=== PATIENT | male | born 1965 ===

== ENCOUNTER 2020-04-25 07:52 | Outpatient (CLI) | payer BC, SELFPAY ==
--- NOTE | 2020-04-25 08:09 | US_ITS ---
WS: [id number] SCROTAL ULTRASOUND EXAMINATION CLINICAL INFORMATION: LEFT TESTICULAR MASS COMPARISON: None. FINDINGS: Echogenic solid appearing nodule measuring 8 x 9 x 13 mm superficially in the superior late ral scrotal sac. This corresponds to the palpable abnormality and is nonspecific but may represent in spissated cyst, scrotal granuloma, fibrous pseudotumor, or hamartoma TESTES Normal in size and echotexture, without focal lesion. Color Doppler: Normal color Doppler flow pattern. Right testes size: 4.6 cm x 3.5 cm x 2.8 cm. Left testes size: 4.8 cm x 3.3 cm x 2.4 cm. EPIDIDYMIDES Normal in size and echotexture, without focal lesion. Color Doppler: Normal color Doppler flow pattern. Right epididymis size: 1.2 cm x 0.9 cm x cm. Left epididymitis size: cm x 1.0 cm x 1.2 cm. HYDROCELE Small bilateral VARICOCELE Small right varicocele OTHER FINDINGS None. US/US scrotum [id number] IMPRESSION: 1. Echogenic solid appearing nodule measuring 8 x 9 x 13 mm superficially in t he superior lateral scrotal sac. This corresponds to the palpable abnormality a nd is nonspecific but may represent inspissated cyst, scrotal granuloma, fibrou s pseudotumor, or hamartoma. Consider urology consultation for resection consid ering increase in size. 2. Small bilateral hydroceles. 3. Small right varicocele.
== END 2020-04-25 07:53 | disposition home or self-care (01) ==
PROVIDERS: PCP Nurse Practitioner Family; Visit Provider Nurse Practitioner Family
DX: N50.9 Disorder of male genital organs, unspecified (principal); I86.1 Scrotal varices; N43.3 Hydrocele, unspecified
CPT/HCPCS: 76870

== ENCOUNTER → 2020-05-23 17:00 | Outpatient (BNVA) | payer BC, SELFPAY | PROVIDERS: PCP Nurse Practitioner Family; Referring Provider Nurse Practitioner Family; Visit Provider Urology | DX: N50.89 Other specified disorders of the male genital organs (principal) | CPT/HCPCS: 81003; 88304 ==

== ENCOUNTER 2024-09-01 13:49 | Outpatient (CLI) | payer OTHER, SELFPAY ==
--- NOTE | 2024-09-01 14:32 | XR_ITS ---
WS: [id number] XR foot LT min 3V* [id number] REASON FOR EXAM: GREAT TOE PAIN BRUISING FINDINGS: No fracture or focal bone lesion. No periosteal reaction or bone erosion. Sesamoids intact. Joint spaces of the forefoot are intact and relatively well preserved. The joint spaces in the midfoot are intact and relatively well preserved. The subtalar joint is intact and relatively well preserved. Small anterior calcaneal enthesophyte. XR/XR foot LT min 3V* [id number] IMPRESSION: No acute bone or joint abnormality of the great toe. Remainder of the examinati on demonstrates no acute abnormality.
== END 2024-09-01 13:50 | disposition home or self-care (01) ==
PROVIDERS: PCP Nurse Practitioner Family; Visit Provider Nurse Practitioner Family
DX: M79.675 Pain in left toe(s) (principal); M77.32 Calcaneal spur, left foot
CPT/HCPCS: 73630